=== PATIENT | female | born 1985 | race Caucasian/White ===

== ENCOUNTER 2017-06-16 00:32 | Emergency (ER) | payer OTHER ==
[~2017-06-16] VITALS: Ht 165.1 cm; Wt 45.4 kg
--- NOTE | 2017-06-16 00:55 | NUR ---
Pt is received alert, responsive as she came in for refilled of Metronidazole 500mg po. Her care continue as she is been seen by .
[2017-06-16] MEDS ORDERED: METRONIDAZOLE 250 MG TABLET PO ONE (01:00)
[2017-06-16] MEDS ORDERED: METRONIDAZOLE 500 MG TABLET PO ONE (01:00)
[2017-06-16 01:10] VITALS: BP 101/70
--- NOTE | 2017-06-16 01:10 | NUR ---
Pt is been discharge to home with prescription off Metronidazole 500mg po, 1tab 2xdaily and discharge instructions given.
[2017-06-16] MEDS ORDERED: METRONIDAZOLE 500 MG TABLET ONE (01:15)
== END 2017-06-16 01:13 | disposition home or self-care (01) ==
LOC: ER 00:43
DX: N76.0 Acute vaginitis (principal)
CPT/HCPCS: A4663